=== PATIENT | male | born 1955 | race Caucasian/White ===

== ENCOUNTER 2017-07-10 23:12 | Inpatient (IN) ==
[2017-07-10] MEDS ORDERED: ONDANSETRON 4 MG/2 ML INJECTION IVP ONE (23:30)
[2017-07-10] MEDS ORDERED: NS 1,000 ML IV ONE (23:30)
--- NOTE | 2017-07-10 23:34 | Emergency Department Report ---
Abdominal Pain HPI - General Chief Complaint: Abdominal Pain <Asher Naranjo - 07/11/17 01:58> Stated Complaint: stomach blockage <Asher Naranjo [facility] 07/11/17 01:58> Time Seen by Provider: 07/10/17 23:16 <Asher Naranjo [facility] 07/11/17 01:58> Source: patient <Farzana Del Angel 07/10/17 23:36> Mode of arrival: ambulatory <Farzana Del Angel 07/10/17 23:36> Limitations: no limitations <Farzana Del Angel 07/10/17 23:36> - History of Present Illness HPI narrative: This afternoon around 1300 he had onset of abdominal bloating and abdominal cramping. He feels like the cramping goes all the way across his abdomen. He has been nauseated but has not been vomiting. Had a BM this morning that was normal but no diarrhea. Has felt like he has had a fever at home but has not checked it. Has felt sweaty at times. He has been admitted in the past for abdominal blockage he states. Had admission in 2010 for possible blockage by Dr Mcdonald. <BeanFarzana N 07/10/17 23:36> MD complaint: abdominal pain <LatishachanelAlexaa 07/10/17 23:36> Onset (ago): hour(s) (Started at 1300 today) <Farzana Del Angel 07/10/17 23:36> Consistency: constant <BeanFarzana Zuniga 07/10/17 23:36> Location: diffuse <BeanFarzana Zuniga 07/10/17 23:36> Severity: moderate <eBanFarzana Zuniga 07/10/17 23:36> Quality: cramping <LatishachanelFarzana Efrain 07/10/17 23:36> Radiation: none <LatishachanelFarzana Efrain 07/10/17 23:36> Migration to: no migration <BeanFarzana 07/10/17 23:36> Relieving factors: nothing <LatishachanelFarzana N 07/10/17 23:36> Exacerbating factors: nothing <LatishachanelFarzana Efrain 07/10/17 23:36> Associated symptoms: nausea [facility]> - Related Data Home Medications Medication Instructions Recorded Confirmed Aspirin [Aspir 81] 81 mg PO DAILY #0 02/13/11 07/11/17 [place]-3 Acid Ethyl Esters (Lovaza) 1 g PO DAILY #0 04/14/12 07/11/17 Cinnamon Bark [Cinnamon] 500 mg PO DAILY 07/11/17 07/11/17 Sitagliptin Phos/Metformin HCl 1 each PO 07/11/17 [Janumet Xr 100-1,000 mg Tablet] <Asher Naranjo 07/11/17 01:58> Allergies Allergy/AdvReac Type Severity Reaction Status Date / Time No Known Allergies Allergy Verified 07/10/17 23:38 <Asher Naranjo [facility] 07/11/17 01:58> Review of Systems Constitutional: Reports: chills. Denies: fever, weakness <[facility] 08/26 23:36> ENT: Denies: ear pain, throat pain, congestion <Farzana 07/10/17 23:36 > Cardiovascular: Denies: chest pain, palpitations, dyspnea on exertion, edema < Farzana 07/10/17 23:36> Respiratory: Denies: cough, dyspnea, wheezes <esa 07/10/17 23:36> Gastrointestinal: Reports: abdominal pain, nausea. Denies: vomiting, diarrhea, constipation <,Farzana 07/10/17 23:36> Genitourinary: Denies: urgency, dysuria, frequency <Farzana 07/10/17 23:36> Integumentary: Denies: rash <[facility] 07/10/17 23:36> Neurological: Denies: headache, weakness, numbness, paresthesias <Farzana 07/10/17 23:36> [facility] Patient Stated Medical History Hypertension Yes: AT TIMES Diabetes Mellitus Type 1 Yes Obstructive Bowel Yes <Asher Naranjo 07/11/17 01:53> Diabetes HTN Hyperlipidemia [facility] 07/10/17 23:36> - Social History Smoking status: Never smoker <Farzana Del Angel 07/10/17 23:36> Substance use type: does not use <Farzana Del Angel 07/10/17 23:36> Alcohol intake frequency: does not drink <Farzana Del Angel 07/10/17 23:36> Physical Exam - Limitations Limitations: no limitations <Farzana Del Angel 07/10/17 23:36> - General General appearance: alert, in no apparent distress <Farzana Del Angel 07/10/17 23:36> - Normal Exams: Neck:: Full range of motion, without adenopathy, JVD, bruits or thyromegaly < Farzana Del Angel 07/10/17 23:36> Chest/Respirations:: Clear all bae, with good airflow, and symmetry bilaterally <Farzana Del Angel 07/10/17 23:36> Cardiovascular:: Regular rate and rhythm, without murmur or gallop, Pulses 2+ all extremities, capillary refill, <2 seconds all extremities <Farzana Del Angel 07/10/17 23:36> Lymphatic:: No lymphadenopathy, or lymphedema noted <Farzana Del Angel 07/10/17 23:36> Integumentary:: No rashes, hives, or bruising noted <Farzana Del Angel 07/10/17 23:36> Neurological:: Patient is alert, and oriented <Farzana Del Angel 07/10/17 23:36> Psychiatric:: Patient exhibits, appropriate attention, emotion and affect < Farzana Del Angel 07/10/17 23:36> - Abdominal Exam Abdominal exam: Present: distention, tenderness (TTP in the RUQ and LUQ), diminished bowel sounds. Absent: soft (firm, more in the upper abdomen), guarding, rebound <Farzana Del Angel 07/10/17 23:36> Course Vital Signs Temperature 98.3 F 07/10/17 23:23 Pulse Rate 115 H 07/10/17 23:23 Respiratory Rate 20 07/10/17 23:23 Blood Pressure 178/109 H 07/10/17 23:23 Pulse Oximetry 94 07/10/17 23:23 Temperature 98.3 F 07/10/17 23:23 Pulse Rate 118 H 07/11/17 01:30 Respiratory Rate 14 07/11/17 01:30 Blood Pressure 159/99 H 07/11/17 01:30 Pulse Oximetry 98 07/11/17 01:30 <MarcellaAsher - 07/11/17 01:53> Abdominal Pain - MDM Narrative Medical decision making narrative: CBC, CMP normal, CT shows early small bowel obstruction with mildly dilated loops, air-fluid levels, and transition zone in the jejunum Case is discussed with Dr. Zaire Vigil, we'll admit inpatient for small bowel obstruction NG tube has been ordered in the ER <MarcellaAsher - 07/11/17 01:58> - Differential Diagnosis Differential diagnosis: Likely: abdominal pain, diverticulitis, gastroenteritis , pancreatitis, small bowel obstruction <Farzana Del Angel N - 07/10/17 23:36> - Lab Data Result diagrams: 07/10/17 23:57 07/10/17 23:57 <MarcellaAsher - 07/11/17 01:58> Lab Results 07/10/17 07/10/17 Range/Units 23:57 23:57 WBC 10.8 (4.5-11.0) T/MM3 RBC 5.16 (4.50-5.90) M/MM3 Hgb 16.1 (13.5-17.5) GM/DL Hct 47.3 (41-53) % MCV 91.7 (80-100) UM3 MCH 31.2 (26-34) UUG MCHC 34.0 (31-37) GM/DL RDW Std Deviation 40.1 (36.9-50.2) FL Plt Count 256 (130-400) T/MM3 MPV 9.8 (9.4-12.4) UM3 Immature Gran % (Auto) Not performed Neut % (Auto) Not performed Lymph % (Auto) Not performed [place] % (Auto) Not performed Eos % (Auto) Not performed Baso % (Auto) Not performed Neut # (Auto) Not performed Lymph # (Auto) Not performed [place] # (Auto) Not performed Eos # (Auto) Not performed Baso # (Auto) Not performed Abs Immat Gran (auto) Not performed Neutrophils % (Manual) 88.0 H (33-66) % Lymphocytes % (Manual) 11.0 L (23-45) % Monocytes % (Manual) 1.0 (0-9.0) % Neutrophils # (Manual) 9.5 H (1.8-7.7) T/MM3 Lymphocytes # (Manual) 1.2 (1-4.8) T/MM3 Monocytes # (Manual) 0.1 (0-0.8) T/MM3 RBC Morph Comment Normal Turbidity < 20 (0-20) Sodium 140 (134-144) MEQ/L Potassium 5.0 (3.6-5) MEQ/L Chloride 99 (98-107) MEQ/L Carbon Dioxide 27 (22-30) MEQ/L Anion Gap 14 (5-15) MEQ/L BUN 12.0 (9-20) MG/DL Creatinine 0.6 L (0.8-1.5) MG/DL GFR Calculation 137 BUN/Creatinine Ratio 20 (6-26) RATIO Glucose 277 H (75-110) MG/DL Calculated Osmolality 279 (261-280) MOSM/KG Calcium 10.2 (8.4-10.2) MG/DL Total Bilirubin 1.30 (0.20-1.30) MG/DL Icterus Index < 2 (0-7) AST 88 H (17-59) U/L ALT 91 H (21-72) U/L Alkaline Phosphatase 100 (38-126) U/L Total Protein 9.3 H (6.3-8.2) G/DL Albumin 4.8 (3.5-5.0) G/DL Globulin 4.5 H (2.4-3.6) G/DL Albumin/Globulin Ratio 1.1 (1.1-2.2) RATIO Lipase 71 (23-300) U/L Specimen Hemolysis 97 H (0-25) <Asher Naranjo 07/11/17 01:53> Disposition Clinical Impression: Small bowel obstruction <Asher Naranjo 07/11/17 01:58> [place] [facility] <Asher Naranjo 07/11/17 01:58> Condition: Improved <Asher Naranjo 07/11/17 01:58> Instructions: <Asher Naranjo 07/11/17 01:58> Prescriptions: No Action Aspirin [Aspir 81] 81 mg PO DAILY #0 Sitagliptin Phos/Metformin HCl [Janumet Xr 100-1,000 mg Tablet] 1 each PO [place]-3 Acid Ethyl Esters (Lovaza) 1 g PO DAILY #0 Cinnamon Bark [Cinnamon] 500 mg PO DAILY <Asher Naranjo - 07/11/17 01:58 > Referrals: Frank Dey II, MD [Primary Care Provider] - <Asher Naranjo - 07/11/17 01:58> Forms: <Asher Naranjo - 07/11/17 01:58> - Seen By: physician <Asher Naranjo - 07/11/17 01:58>
[2017-07-10] MEDS: SALINE FLUSH 10ml SYRINGE IVF PRN (23:59)
[2017-07-11] MEDS ORDERED: MORPHINE SULFATE 4mg INJECTION IVP ONE (00:05)
[2017-07-11] MEDS ORDERED: NS 100 ML ONE (00:32)
[2017-07-11] MEDS ORDERED: IOHEXOL 300mg/ml 100ml INJECTION ONE (00:32)
[2017-07-11] MEDS ORDERED: SALINE FLUSH 10ml SYRINGE ONE (00:32)
[2017-07-11] MEDS ORDERED: HYDROMORPHONE 2 MG/ML INJECTION IVP ONE (01:37)
[2017-07-11] MEDS: SALINE FLUSH 10ml SYRINGE IVF PRN (01:55)
[2017-07-11] MEDS ORDERED: LIDOCAINE 2% JELLY (Urojet) 20ml MM ONE (01:56)
--- NOTE | 2017-07-11 02:09 | History & Physical Report ---
History of Present Illness Date: 07/11/17 Chief complaint: Abdominal pain HPI: pleasant 61-year-old male presents to the emergency room with several hours of abdominal pain Which she described as sharp and crampy left-sided with some radiation across the abdomen. He is passing minimal flatus currently,. His abdominal bloating with this, he was passing gas previously He had a normal bowel movement Kevin morning., he does have a history of small bowel obstructions previously And remotely had a history of surgery where he had some of his large and small intestine removed. Following that he's had a couple of instances of small bowel obstruction and a healed resolved without surgical intervention, he has had a hernia repair in About 5 years ago.. he did have some sweats but no yaakov fever or chills. He denies cough shortness of breath or chest pain. Review of Systems All systems PM: 10-point ROS was reviewed, no additional remarkable complaints except PFSH Patient Stated Medical History Hypertension Yes: AT TIMES Diabetes Mellitus Type 1 Yes Obstructive Bowel Yes Clinic Medical History Small bowel obstruction (Acute Medical) Surgical History: Previous removal of small and large bowel. Knee surgery. Hernia repair around the scar on his abdomen. Cholecystectomy. Prostate surgery - Social History Smoking status: Never smoker Medications Home Medications Medication Instructions Recorded Confirmed Type Aspirin [Aspir 81] 81 mg PO DAILY #0 02/13/11 07/11/17 History [place]-3 Acid Ethyl Esters (Lovaza) 1 g PO DAILY #0 04/14/12 07/11/17 History Cinnamon Bark [Cinnamon] 500 mg PO DAILY 07/11/17 07/11/17 History Sitagliptin Phos/Metformin HCl 1 each PO 07/11/17 History [Janumet Xr 100-1,000 mg Tablet] Allergies Allergy/AdvReac Type Severity Reaction Status Date / Time No Known Allergies Allergy Verified 07/10/17 23:38 Exam Vital Signs: Temperature 98.3 F 07/10/17 23:23 Pulse Rate 118 H 07/11/17 01:30 Respiratory Rate 14 07/11/17 01:30 Blood Pressure 159/99 H 07/11/17 01:30 Pulse Oximetry 98 07/11/17 01:30 Telemetry Rhythm: Sinus Tachycardia Height/Weight/BMI: Height 1.68 m Weight 116.4 kg Comments: general is quite pleasant alert and oriented 3 Elevated body mass index Abdomen is obese soft distended mild left quadrant tenderness to palpation without rebound or guarding he does have active bowel sounds in sound normal Lungs are clear bilaterally Cardiovascular tachycardic and regular without murmur without rub Extremities no edema Results - Labs CBC & Chem 7: 07/10/17 23:57 07/10/17 23:57 - Imaging and Cardiology CT scan - abdomen Additional comments: discussed with ER physician, transition point found in the jejunum Assessment and Plan (1) Small bowel obstruction Current visit: Yes Status: Acute (2) Diabetes Current visit: Yes Status: Acute (3) Hypertension Current visit: Yes Status: Acute (4) Obesity Current visit: Yes Status: Acute Assessment and Plan: 1 small bowel obstruction. Transition zone in the jejunum seen on CT scan. Patient is made nothing by mouth, IV fluids will be provided. We'll defer and see if needs surgical evaluation tomorrow, NG tube offered. with pain medicine may be necessary through the IV. Anti-emetics will be provided as well. 2. Hypertension we'll hold oral medications at this time 3. Diabetes mellitus type 2 typically not on insulin. We'll monitor sugars and provide correctional scale if needed, provide intravenous dextrose for some nutritional value Hospital Course Summary Disclaimer: The visit summary below is not to be considered part of the above Progress Note.
[2017-07-11] MEDS ORDERED: D5-1/2NS with KCL 20mEq 1,000 ML IV SCH (03:11)
[2017-07-11] MEDS ORDERED: ONDANSETRON 4 MG/2 ML INJECTION IVP PRN (03:11)
[2017-07-11] MEDS ORDERED: NS 1,000 ML IV SCH (03:11)
[2017-07-11] MEDS ORDERED: PROMETHAZINE 25 MG INJECTION IVP PRN (03:11)
[2017-07-11] MEDS ORDERED: DEXTROSE 50% SYRINGE 50ml (1 AMP) IVP PRN (03:11)
[2017-07-11] MEDS ORDERED: MORPHINE SULFATE 4mg INJECTION IVP PRN (03:11)
[2017-07-11 03:21] VITALS: BMI 41.4
[2017-07-11] MEDS: INSULIN ASPART 100unit/ml INJECTION SQ PRN ×2 (06:32→12:28)
[2017-07-11 08:05] VITALS: O2SAT 95
--- NOTE | 2017-07-11 09:02 | Progress Note ---
- Date 07/11/17 Subjective: Feeling better this morning, abdominal pain improved. Passing flatus. Declines NGT. States he typically can improve with supportive care when he catches these SBO early; has had multiple in the past. Admission H&P per Dr. Vigil was reviewed. CTAP with transition point at the jejunum. Objective Vital signs: Temperature 97.7 F 07/11/17 08:04 Pulse Rate 104 H 07/11/17 08:04 Respiratory Rate 16 07/11/17 08:04 Blood Pressure 133/94 H 07/11/17 08:04 Pulse Oximetry 95 07/11/17 08:04 Rhythm: Normal Sinus Rhythm Height/Weight/BMI: Height 1.68 m Weight 116.8 kg Body Mass Index 41.4 - Constitutional Present: no acute distress, obese, cooperative - Routine HEENT Exam Head: Present: normocephalic, atraumatic Eye: Present: EOMI, PERRL. Absent: conjunctival icterus ENT: Present: mucous membranes moist, oropharynx clear - Routine Respiratory Exam Present: CTA bilaterally. Absent: accessory muscle use - Routine Cardiovascular Exam Present: RRR. Absent: murmur - Routine Abdominal Exam Present: soft, distended (mild). Absent: rebound, guarding, rigid Comments: bowel sounds audible throughout - Routine Extremities Exam Present: pulses intact, normal capillary refill. Absent: edema - Routine Skin Exam Present: intact, dry, warm. 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 --> Improving with supportive care and NPO status --> Passing flatus today, bowel sounds in all quadrants, no NGT (patient declines) --> last BM 12/1 AM DMII, not insulin dependent at baseline, on dextrose-containing IVF and correction scale novolog currently Hypertension in good control Obesity Plan: Advance to clear liquid diet Hold further IVF if tolerating clears Continue correction scale novolog and monitor blood sugars off of dextrose Monitor today, will advance diet further if tolerating through the day Encourage ambulation today Continue IV antiemetics if needed, avoid narcotics unless pain worsening significantly Discussed with nursing staff and patient. DVT Prophylaxis: SCD's GI Prophylaxis: Pepcid Resuscitation Status: Full Code Hospital Course Summary Disclaimer: The visit summary below is not to be considered part of the above Progress Note. Hospital Course: 07/11/17 09:06 Assessment: Admitted overnight 07/10 SBO, recurrent partial obstruction s/p surgical intervention many years ago --> Improving with supportive care and NPO status --> Passing flatus today, bowel sounds in all quadrants, no NGT (patient declines) --> last BM 07/10 AM DMII, not insulin dependent at baseline, on dextrose-containing IVF and correction scale novolog currently Hypertension in good control Obesity Plan: Advance to clear liquid diet Hold further IVF if tolerating clears Continue correction scale novolog and monitor blood sugars off of dextrose Monitor today, will advance diet further if tolerating through the day Encourage ambulation today Continue IV antiemetics if needed, avoid narcotics unless pain worsening significantly
[2017-07-11 15:33] VITALS: BP 140/90; PULSE 85; RESP 18; TEMP 97.1
--- NOTE | 2017-07-12 09:55 | CT Scan Report ---
Indication: abdominal pain PROCEDURE: CT abdomen pelvis w con: Encounter: Initial Comparison: February 14, 2011 Technique: Axial CT images were performed through the abdomen and pelvis after the administration of intravenous contrast. Coronal and sagittal two-dimensional reformats. Automated Exposure Control and Iterative Reconstruction dose reducing techniques were utilized. Contrast: Omnipaque 300 100 mL Findings: The lung bases are grossly clear. The liver shows no enhancing mass or bile duct dilatation. Gallbladder is surgically absent. Stomach is distended and fluid-filled. The spleen, pancreas and adrenal glands are normal. The kidneys are normal. No abdominal or pelvic lymphadenopathy. The bladder is normal. There is a sigmoid colonic anastomosis. Multiple surgical clips in the posterior lower abdomen and pelvis. There is a small bowel obstruction with transition point in the central abdomen. There are dilated fluid-filled bowel loops proximally and completely decompressed loops of ileum distally. The proximal transition point is in the initial portion of the jejunum. The distal transition point is in the left anterior abdomen just below the abdominal wall seen on axial image #53 and coronal image #17 probably within the distal jejunum. Bone windows show degenerative change in the spine. 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 Impression: Acute small bowel obstruction, probably due to adhesions in the left anterior abdomen. The appearance is similar to the 2010 comparison and this may be a high-grade partial obstruction. There is a preliminary report by [employer]. .
--- NOTE | 2017-07-12 10:34 | Discharge Summary ---
Discharge Information Date of admission: 07/11/17 02:53 Anticipated date of discharge: 07/11/17 Attending Physician: Dominga Castillo MD Primary care physician: Frank Dey II, MD - Discharge Diagnosis (1) Diabetes Status: Chronic (2) Hypertension Status: Chronic (3) Obesity Status: Chronic (4) Small bowel obstruction Status: Resolved Partial SBO DMII Hypertension Obesity - Laboratory Labs: Labs reviewed from admission; no significant abnormalities found on CBC or metabolic panel at admission outside of mildly elevated AST at 88 and ALT at 91. - Radiology Radiology: Date of Exam: 07/11/17 Ordering Provider: Farzana Del Angel APRN Type of Exam(s): CT abdomen pelvis w con Reason for Exam(s): abdominal pain Indication: abdominal pain PROCEDURE: CT abdomen pelvis w con: Encounter: Initial Comparison: February 14, 2011 Technique: Axial CT images were performed through the abdomen and pelvis after the administration of intravenous contrast. Coronal and sagittal two-dimensional reformats. Automated Exposure Control and Iterative Reconstruction dose reducing techniques were utilized. Contrast: Omnipaque 300 100 mL Findings: The lung bases are grossly clear. The liver shows no enhancing mass or bile duct dilatation. Gallbladder is surgically absent. Stomach is distended and fluid-filled. The spleen, pancreas and adrenal glands are normal. The kidneys are normal. No abdominal or pelvic lymphadenopathy. The bladder is normal. There is a sigmoid colonic anastomosis. Multiple surgical clips in the posterior lower abdomen and pelvis. There is a small bowel obstruction with transition point in the central abdomen. There are dilated fluid-filled bowel loops proximally and completely decompressed loops of ileum distally. The proximal transition point is in the initial portion of the jejunum. The distal transition point is in the left anterior abdomen just below the abdominal wall seen on axial image #53 and coronal image #17 probably within the distal jejunum. Bone windows show degenerative change in the spine. 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 Impression: Acute small bowel obstruction, probably due to adhesions in the left anterior abdomen. The appearance is similar to the 2010 comparison and this may be a high-grade partial obstruction. There is a preliminary report by [employer]. History of Present Illness HPI: From H&P overnight 07/[address] Vigil: pleasant 61-year-old male presents to the emergency room with several hours of abdominal pain Which she described as sharp and crampy left-sided with some radiation across the abdomen. He is passing minimal flatus currently,. His abdominal bloating with this, he was passing gas previously He had a normal bowel movement Thursday morning., he does have a history of small bowel obstructions previously And remotely had a history of surgery where he had some of his large and small intestine removed. Following that he's had a couple of instances of small bowel obstruction and a healed resolved without surgical intervention, he has had a hernia repair in About 5 years ago.. he did have some sweats but no yaakov fever or chills. He denies cough shortness of breath or chest pain. 07/12/17 10:35 Objective Vital signs: Temperature 97.1 F 07/11/17 15:32 Pulse Rate 85 07/11/17 15:32 Respiratory Rate 18 07/11/17 15:32 Blood Pressure 140/90 H 07/11/17 15:32 Pulse Oximetry 95 07/11/17 15:32 Rhythm: Normal Sinus Rhythm Height/Weight/BMI: Height 1.68 m Weight 116.8 kg Body Mass Index 41.4 - Constitutional Present: no acute distress, well nourished, well developed, obese - Routine HEENT Exam Head: Present: normocephalic, atraumatic Eye: Present: EOMI, PERRL ENT: Present: mucous membranes moist, oropharynx clear - Routine Respiratory Exam Present: CTA bilaterally. Absent: rhonchi, wheezes, crackles - Routine Cardiovascular Exam Present: RRR. Absent: murmur - Routine Abdominal Exam Present: soft, non distended, non tender - Routine Extremities Exam Present: pulses intact, normal capillary refill. Absent: edema - Routine Skin Exam Present: dry, warm. Absent: rash - Routine Neurological Exam Present: alert, oriented X3, normal speech - Routine Psychiatric Exam Present: normal affect, normal thought process Hospital Course Mr. Hedrick was admitted overnight and made NPO. NGT was ordered but declined. He rapidly improved with supportive care, was tolerating clear liquids on the morning on 07/11 and by the afternoon was able to tolerate some solid food. Bowels were moving, pain and nausea resolved. He requested DC on the evening of 07/11 and was discharged home to continue supportive care and follow up with his primary physician. Hospital course: 07/11/17 09:06 Assessment: Admitted overnight 07/10 SBO, recurrent partial obstruction s/p surgical intervention many years ago --> Improving with supportive care and NPO status --> Passing flatus today, bowel sounds in all quadrants, no NGT (patient declines) --> last BM 12 AM DMII, not insulin dependent at baseline, on dextrose-containing IVF and correction scale novolog currently Hypertension in good control Obesity Plan: Advance to clear liquid diet Hold further IVF if tolerating clears Continue correction scale novolog and monitor blood sugars off of dextrose Monitor today, will advance diet further if tolerating through the day Encourage ambulation today Continue IV antiemetics if needed, avoid narcotics unless pain worsening significantly Time spent with patient: 25 - 35 minutes Discharge Plan - Discharge Disposition Discharge Date: 07/11/17 Disposition: 01 Discharged Home, Self-Care *Condition: Improved Reason For Visit (Visit label in EMR): small bowel obstruction - Discharge Medications *Discharge Medications: Continue Aspirin [Aspir 81] 81 mg PO DAILY #0 Sitagliptin Phos/Metformin HCl [Janumet Xr 100-1,000 mg Tablet] 1 each PO [place]-3 Acid Ethyl Esters (Lovaza) 1 g PO DAILY #0 Cinnamon Bark [Cinnamon] 500 mg PO DAILY - Discharge Packet/Instructions *Diet: As tolerated; advance as able *Activity: As tolerated; no specific restrictions *Pain Management/Treatment: N/A; pain has resolved *Wound Care: N/A *Expected Signs/Symptoms: You may have recurrent pain or nausea, in which case you should resume a clear liquid diet or return for futher evaluation. *Notify Physician if: symptoms worsen or recur. *During Business Hours Contact: your primary care physician. *After Business Hours Contact: the [facility] switchboard at [phone] or return to the ED for evaluation. *Pending Lab/Results: No Pending Lab - Referrals/Follow Up *Referrals/Follow Up: Frank Dey II, MD [Primary Care Provider] - - Patient Handouts Patient Handouts: Bowel Obstruction (DC) - Dismissal Complete Discharge Instructions are:: Complete
== END 2017-07-11 17:48 | disposition home or self-care (01) | DRG 389 ==
LOC: ED 23:12 → SRG 07-11 02:53
PROVIDERS: ADMIT Pediatrics; ATTEND Hospitalist